=== PATIENT | male | born 1970 | race Caucasian/White ===

== ENCOUNTER 2018-07-27 14:39 | Outpatient (CLI) | payer BC ==
[2018-07-27] MEDS: diphenhydrAMINE 25 MG CAP PO (15:09)
[2018-07-27] MEDS: ACETAMINOPHEN TAB 650MG DOSE (2X325MG) PO (15:10)
[2018-07-27] MEDS: NS 500 ML IV (15:20)
[2018-07-27] MEDS: VEDOLIZUMAB 300 MG in NS 250 ML IV (16:24)
== END 2018-07-27 17:15 | disposition home or self-care (01) ==
LOC: M INFU 14:39
DX: K50.00 Crohn's disease of small intestine without complications (principal); Z88.8 Allergy status to other drugs, medicaments and biological substances
CPT/HCPCS: J3380

== ENCOUNTER 2018-08-10 14:46 | Outpatient (CLI) | payer BC ==
[2018-08-10] MEDS: NS 500 ML IV (15:30)
[2018-08-10] MEDS: diphenhydrAMINE 25 MG CAP PO (16:00)
[2018-08-10] MEDS: VEDOLIZUMAB 300 MG in NS 250 ML IV (16:28)
[2018-08-10] MEDS: ACETAMINOPHEN TAB 650MG DOSE (2X325MG) PO (16:29)
== END 2018-08-10 17:30 | disposition home or self-care (01) ==
LOC: M INFU 14:46
DX: K50.90 Crohn's disease, unspecified, without complications (principal); J45.909 Unspecified asthma, uncomplicated; F41.9 Anxiety disorder, unspecified; F32.9 Major depressive disorder, single episode, unspecified; Z93.3 Colostomy status; Z86.73 Personal history of transient ischemic attack (TIA), and cerebral infarction without residual deficits
CPT/HCPCS: J3380

== ENCOUNTER 2018-09-07 15:09 | Outpatient (CLI) | payer BC ==
[2018-09-07] MEDS: diphenhydrAMINE 25 MG CAP PO (15:15)
[2018-09-07] MEDS: ACETAMINOPHEN TAB 650MG DOSE (2X325MG) PO (15:28)
[2018-09-07] MEDS: NS 500 ML IV (15:29)
[2018-09-07] MEDS: VEDOLIZUMAB 300 MG in NS 250 ML IV (16:15)
== END 2018-09-07 17:10 | disposition home or self-care (01) ==
LOC: M INFU 15:09
DX: K50.019 Crohn's disease of small intestine with unspecified complications (principal); Z79.891 Long term (current) use of opiate analgesic; Z79.899 Other long term (current) drug therapy; Z88.8 Allergy status to other drugs, medicaments and biological substances
CPT/HCPCS: J3380

== ENCOUNTER 2018-12-04 07:44 | Day surgery (SDC) | payer BC ==
[~2018-12-04] VITALS: Ht 180.3 cm; Wt 136.1 kg
[~2018-12-04 07:44] MED LIST: CALC-195 PO; DRIS50003 PO; FERR240T PO; HYDR-3713 PO; LEVO125T4 PO; LOPE2CA PO; LR 1,000 ML IV ONE; MULTTAB PO; OMEG1CAP16 PO; POTA10TA14 PO; TUMERIC PO; TURM500T PO; VITA100072 PO; ZOLO100T PO
[2018-12-04] MEDS ORDERED: BUPIVACAINE HCL 0.25% 30 ML VIAL As Ordered ONE (10:59)
[2018-12-04] MEDS ORDERED: BUPIVACAINE LIPOSOME/PF 1.3% 20ML VIAL (13.3MG/ML)(EXPAREL)(C9290 PER1MG) As Ordered ONE (10:59)
[2018-12-04] MEDS ORDERED: dexameTHASONE 4 MG/ML 1ML VIAL (J1100) As Ordered ONE (11:05)
[2018-12-04] MEDS ORDERED: NEOSTIGMINE 10 MG/10 ML VIAL (J2710) As Ordered ONE (11:05)
[2018-12-04] MEDS ORDERED: ONDANSETRON 4MG/2ML VIAL (J2405) As Ordered ONE (11:05)
[2018-12-04] MEDS ORDERED: PROPOFOL 200 MG/20 ML VIAL As Ordered ONE ×2 (11:05→12:59)
[2018-12-04] MEDS ORDERED: METOCLOPRAMIDE INJ 10MG/2ML VIAL (J2765) As Ordered ONE (11:05)
[2018-12-04] MEDS ORDERED: ROCURONIUM BROMIDE 50 MG/5 ML VIAL As Ordered ONE ×3 (11:05→13:08)
[2018-12-04] MEDS ORDERED: fentaNYL 250 MCG/5 ML INJECTION (J3010) As Ordered ONE (11:05)
[2018-12-04] MEDS ORDERED: GLYCOPYRROLATE INJ 0.2 MG/ML 2 ML VIAL As Ordered ONE (11:05)
[2018-12-04] MEDS ORDERED: MIDAZOLAM INJ 2 MG/2 ML VIAL (J2250) As Ordered ONE (11:05)
[2018-12-04] MEDS ORDERED: LIDOCAINE 2% INJ 100 MG/5 ML SDV (FOR ANES.) As Ordered ONE (11:05)
[2018-12-04] MEDS ORDERED: HYDROmorphone HCL 2 MG/ML 1ML VIAL (J1170) As Ordered ONE (11:06)
[2018-12-04] MEDS ORDERED: ePHEDrine SULFATE 25 MG/5 ML(5MG/ML) SYRINGE As Ordered ONE (12:28)
[2018-12-04] MEDS ORDERED: SUGAMMADEX SODIUM 500 MG/5 ML VIAL (BRIDION) As Ordered ONE (13:19)
[2018-12-04] MEDS ORDERED: BUPIVACAINE HCL 0.25% 10 ML VIAL As Ordered ONE (13:21)
[2018-12-04] MEDS ORDERED: LR 1,000 ML IV SCH (14:15)
[2018-12-04] MEDS ORDERED: ONDANSETRON 4MG/2ML VIAL (J2405) IV PRN (14:15)
[2018-12-04] MEDS ORDERED: MORPHINE 10 MG/ML 1ML VIAL (J2270) IV PRN (14:15)
[2018-12-04] MEDS ORDERED: fentaNYL 100 MCG/2 ML INJECTION (J3010) IV PRN (14:15)
[2018-12-04] MEDS: PERCOCET 5MG/325MG TAB PO PRN ×2 (14:25→14:55)
[2018-12-04] MEDS ORDERED: ALBUTEROL SULFATE 2.5 MG/0.5 ML INH NEB SOLN INH ONE (14:30)
[2018-12-04] MEDS ORDERED: NORCO, ANEXSIA 5/325MG TABLET (HYDROcodone/ACETAMINOPHEN) PO PRN (14:30)
[2018-12-04 15:15] VITALS: BP 138/71
--- NOTE | 2018-12-05 09:35 | RO ---
DATE OF PROCEDURE: 12/04/2018 PREOPERATIVE DIAGNOSIS: Incarcerated ventral incisional hernia. POSTOPERATIVE DIAGNOSIS: Incarcerated ventral incisional hernia. PROCEDURE PERFORMED: Laparoscopic repair of incarcerated ventral incisional hernia with 20 x 15 cm Parietex mesh patch. SURGEON: Dr. Andrews DIRECTOR LEARNING AND DEVELOPMENT: Dr. Hodge, who was needed for management of the laparoscopic camera and the housing assistant port. ANESTHESIA: General. INDICATIONS FOR THE PROCEDURE: Patient is a 48-year-old man with a history of Crohn disease. Approximately 4 years ago, he underwent a small bowel resection with ileostomy for Crohn's related problems. His ileostomy was subsequently closed. He developed an incisional hernia, which has enlarged somewhat over the subsequent years. Inspection reveals a quite large hernia in the right lower quadrant slightly below the level of the umbilicus, which is no longer reducible. He is now for repair. OPERATIVE PROCEDURE: The patient was brought to the operating room and placed supine on the operating table. He was placed under general endotracheal anesthesia. The abdomen was prepped and draped in a sterile fashion. 0.25% Marcaine was infiltrated at the trocar sites as needed. The hernia was readily palpable slightly below the level of the umbilicus in the right lower quadrant. The initial entry into the abdomen was in the left upper quadrant. A small incision was made and a Veress needle was inserted. After a positive hanging drop test, the abdomen was inflated with carbon dioxide gas. A 5 mm port was placed over a 5 mm scope and this was advanced through the abdominal wall without difficulty. The laparoscopic was inserted. The liver appeared normal. Visualized portions of the stomach seemed normal as well. There was some mild dilation of the proximal small bowel, which seemed mostly to be from gas. The patient was tilted to a Trendelenburg position to allow the abdominal contents to fall away from the hernia so it could be better seen. He was noted to have a series of weaknesses along the midline and slightly above the umbilicus. These probably extended 6-8 cm above the umbilicus where there was clearly some stretching of the fascia along the midline, but none of these areas reached a level that I would call another true herniation though the tissues were clearly weakened. There was a single large hernia defect to the right of the midline. This was perhaps 6-7 cm transversely and 4-5 cm superior to inferior. There was a large amount of omentum sticking out into the hernia. A second 5 mm trocar was placed lower down the left side of the abdomen and a third trocar was placed in the left lower quadrant. The patient was rolled slightly to the right. Graspers were inserted. The omentum was reduced from within the hernia, although there were firm adhesions of the omentum into the deepest part of the hernia and these were lysed using the Harmonic scalpel. This allowed better exposure of the defect. The patient was tilted then to the left to allow better examination of the right lower quadrant abdominal wall. There was some preperitoneal fat identified along the inferior and medial aspects of the defect and this fatty tissue was peeled away extending from superior to inferior using the Harmonic scalpel. It was clear that the patient had some degree of diastasis recti though the right rectus muscle was clearly intact. At this point, I elected to deflate the abdomen and make a small incision over the fascial defect to remove the hernia sac and insert the mesh. Therefore, an approximately 6 cm transverse incision was made after deflating the abdomen. A very large hernia sac was identified and this was dissected free from surrounding subcutaneous tissues and excised at the level of the fascia. This was sent for permanent pathology. The edges of the fascial defect were exposed and the fascia appeared of good strength. The medial and lateral ends of the defect were closed with interrupted simple sutures of #1-0 Ethibond. A 15 x 20 cm rectangular, more oval actually, Parietex patch was selected. This was marked to orient the mesh and to place it at a slightly oblique angle covering the fascial defect in the right lower quadrant and then extending up over the midline defect noted above the umbilicus. The midpoint suture of the closure of the fascial defect was used to take a small bite of the mesh and the mesh was then reduced into the abdomen and the fascial defect closure was completed. The abdomen was then reinflated with a maximum pressure of 8 mmHg. The mesh was unfolded and placed against the anterior abdominal wall. SecureStrap tackers were then used to fix the mesh to the abdominal wall. Approximately 85-90 SecureStrap tacks were utilized. The periphery of the mesh was tacked in place as well as multiple tacks along the midline and radiating from this point out to the periphery of the mesh to hold it securely to the anterior abdominal wall. This appeared to give excellent coverage over the areas of weakness along the midline and over the area of the sutured fascial defect. 20 mL of Exparel was mixed with 20 mL of 0.25% Marcaine and this was infiltrated widely into the anterior abdominal wall overlying the mesh. Inspection revealed no evidence of any significant bleeding. In the course of the procedure to affix the mesh, I would note that two additional 5 mm trocars were placed in the right upper quadrant to facilitate tacking of the left side of the mesh. The abdomen was then deflated and the trocars were all removed. The subcutaneous tissues in the hernia site were approximated with #1-0 Vicryl sutures. The skin edges were all approximated with #4-0 or #5-0 Vicryl buried sutures and Steri-Strips. Light dressings were applied. The patient tolerated the procedure well without apparent complication. He was awakened in the operating room, extubated and moved to the recovery room in stable condition. The piece of mesh utilized was a 20 x 15 cm Parietex patch, reference number [id number] lot number [id number]. The patient was taken to the recovery room in stable condition. NINA
== END 2018-12-04 15:50 | disposition home or self-care (01) ==
LOC: M SDC 07:44
PROVIDERS: ATTEND Surgery
DX: K43.0 Incisional hernia with obstruction, without gangrene (principal); E03.9 Hypothyroidism, unspecified; K50.90 Crohn's disease, unspecified, without complications; F41.9 Anxiety disorder, unspecified; F32.9 Major depressive disorder, single episode, unspecified; Z86.73 Personal history of transient ischemic attack (TIA), and cerebral infarction without residual deficits; J45.909 Unspecified asthma, uncomplicated; F17.210 Nicotine dependence, cigarettes, uncomplicated; Z79.899 Other long term (current) drug therapy
CPT/HCPCS: 49655; 88302; C1781; C9290; J1100; J1170; J2250; J2405; J2765; J3010

== ENCOUNTER 2018-12-28 09:15 | Outpatient (CLI) | payer BC ==
[~2018-12-28] VITALS: Ht 180.3 cm; Wt 134.3 kg
[2018-12-28 08:20] VITALS: BP 115/85
[~2018-12-28 09:15] MED LIST changes: -LR 1,000 ML IV ONE
[2018-12-28] MEDS ORDERED: ACETAMINOPHEN TAB 650MG DOSE (2X325MG) PO ONE (09:30)
[2018-12-28] MEDS ORDERED: VEDOLIZUMAB 300 MG in NS 250 ML IV ONE (09:30)
[2018-12-28] MEDS ORDERED: diphenhydrAMINE 25 MG CAP PO ONE (09:30)
[2018-12-28 11:15] VITALS: BP 123/62
== END 2018-12-28 11:15 | disposition home or self-care (01) ==
LOC: M INFU 09:15
PROVIDERS: ATTEND Internal Medicine Gastroenterology
DX: K50.90 Crohn's disease, unspecified, without complications (principal); Z79.891 Long term (current) use of opiate analgesic; Z79.899 Other long term (current) drug therapy
CPT/HCPCS: 96365; J3380

== ENCOUNTER 2019-02-22 09:38 | Outpatient (CLI) | payer BC ==
[~2019-02-22] VITALS: Ht 180.3 cm; Wt 134.3 kg
[~2019-02-22 09:38] MED LIST changes: +VITA100018 PO; -VITA100072 PO
[2019-02-22 09:45] VITALS: BP 132/78
[2019-02-22] MEDS ORDERED: NS 1,000 ML IV ONE (10:00)
[2019-02-22] MEDS ORDERED: ACETAMINOPHEN TAB 650MG DOSE (2X325MG) PO ONE (10:00)
[2019-02-22] MEDS ORDERED: diphenhydrAMINE 25 MG CAP PO ONE (10:00)
[2019-02-22] MEDS ORDERED: VEDOLIZUMAB 300 MG in NS 250 ML IV ONE (11:00)
[2019-02-22 11:44] VITALS: BP 143/78
[2019-02-22 12:08] VITALS: BP 138/72
== END 2019-02-22 12:05 | disposition home or self-care (01) ==
LOC: M INFU 09:38
PROVIDERS: ATTEND Internal Medicine Gastroenterology
DX: K50.90 Crohn's disease, unspecified, without complications (principal)
CPT/HCPCS: 96365; 96367; J3380

== ENCOUNTER 2019-04-19 10:04 | Outpatient (CLI) | payer BC ==
[~2019-04-19] VITALS: Ht 175.3 cm; Wt 134.0 kg
[2019-04-19 10:17] VITALS: BP 133/74
[2019-04-19] MEDS ORDERED: NS 500 ML IV ONE (10:30)
[2019-04-19] MEDS ORDERED: ACETAMINOPHEN TAB 650MG DOSE (2X325MG) PO ONE (11:00)
[2019-04-19] MEDS ORDERED: diphenhydrAMINE 25 MG CAP PO ONE (11:00)
[2019-04-19] MEDS ORDERED: VEDOLIZUMAB 300 MG in NS 250 ML IV ONE (11:30)
[2019-04-19 12:30] VITALS: BP 129/70
== END 2019-04-19 12:30 | disposition home or self-care (01) ==
LOC: M INFU 10:04
PROVIDERS: ATTEND Internal Medicine Gastroenterology
DX: K50.90 Crohn's disease, unspecified, without complications (principal)
CPT/HCPCS: 96365; J3380

== ENCOUNTER 2019-06-14 11:31 | Outpatient (CLI) | payer BC ==
[~2019-06-14] VITALS: Ht 175.3 cm; Wt 134.3 kg
[2019-06-14 11:30] VITALS: BP 138/82
[2019-06-14] MEDS ORDERED: NS 500 ML IV SCH (12:15)
[2019-06-14 12:30] VITALS: BP 128/88
[2019-06-14] MEDS ORDERED: ACETAMINOPHEN TAB 650MG DOSE (2X325MG) PO ONE (12:30)
[2019-06-14] MEDS ORDERED: diphenhydrAMINE 25 MG CAP PO ONE (12:30)
[2019-06-14] MEDS ORDERED: VEDOLIZUMAB 300 MG in NS 250 ML IV ONE (12:30)
[2019-06-14 13:30] VITALS: BP 124/62
== END 2019-06-14 13:35 | disposition home or self-care (01) ==
LOC: M INFU 11:31
PROVIDERS: ATTEND Internal Medicine Gastroenterology
DX: K50.90 Crohn's disease, unspecified, without complications (principal)
CPT/HCPCS: 96365; 96367; J3380

== ENCOUNTER 2019-08-09 08:01 | Outpatient (CLI) | payer BC ==
[~2019-08-09] VITALS: Ht 175.3 cm; Wt 134.2 kg
[2019-08-09 08:05] VITALS: BP 145/78
[2019-08-09] MEDS: NS 500 ML IV ONE ×2 (08:25→09:00)
[2019-08-09] MEDS ORDERED: ACETAMINOPHEN TAB 650MG DOSE (2X325MG) PO ONE (08:30)
[2019-08-09] MEDS ORDERED: diphenhydrAMINE 25 MG CAP PO ONE (08:30)
[2019-08-09] MEDS ORDERED: VEDOLIZUMAB 300 MG in NS 250 ML IV ONE (09:00)
[2019-08-09 10:45] VITALS: BP 144/80
== END 2019-08-09 10:45 | disposition home or self-care (01) ==
LOC: M INFU 08:01
PROVIDERS: ATTEND Internal Medicine Gastroenterology
DX: K50.90 Crohn's disease, unspecified, without complications (principal)
CPT/HCPCS: 96365; 96367; J3380

== ENCOUNTER 2019-10-04 08:05 | Outpatient (CLI) | payer BC ==
[~2019-10-04] VITALS: Ht 175.3 cm; Wt 134.0 kg
[2019-10-04] MEDS ORDERED: ACETAMINOPHEN TAB 650MG DOSE (2X325MG) PO ONE (08:15)
[2019-10-04] MEDS ORDERED: diphenhydrAMINE 25 MG CAP PO ONE (08:15)
[2019-10-04 08:16] VITALS: BP 145/70
[2019-10-04] MEDS ORDERED: VEDOLIZUMAB 300 MG in NS 250 ML IV ONE (08:30)
[2019-10-04] MEDS ORDERED: NS 500 ML IV ONE (08:45)
[2019-10-04 10:20] VITALS: BP 125/70
== END 2019-10-04 10:20 | disposition home or self-care (01) ==
LOC: M INFU 08:05
PROVIDERS: ATTEND Internal Medicine Gastroenterology
DX: K50.90 Crohn's disease, unspecified, without complications (principal); Z88.8 Allergy status to other drugs, medicaments and biological substances
CPT/HCPCS: 96361; 96365; J3380

== ENCOUNTER 2019-11-25 12:25 | Outpatient (CLI) | payer BC ==
[~2019-11-25] VITALS: Ht 175.3 cm; Wt 134.0 kg
[2019-11-25 12:40] VITALS: BP 128/84
[2019-11-25] MEDS ORDERED: NS 500 ML IV SCH (13:30)
[2019-11-25] MEDS ORDERED: VEDOLIZUMAB 300 MG in NS 250 ML IV ONE (14:00)
[2019-11-25] MEDS ORDERED: diphenhydrAMINE 25 MG CAP PO ONE (14:00)
[2019-11-25] MEDS ORDERED: ACETAMINOPHEN TAB 650MG DOSE (2X325MG) PO ONE (14:00)
[2019-11-25 15:00] VITALS: BP 140/71
== END 2019-11-25 15:00 | disposition home or self-care (01) ==
LOC: M INFU 12:25
PROVIDERS: ATTEND Internal Medicine Gastroenterology
DX: K50.90 Crohn's disease, unspecified, without complications (principal); Z88.8 Allergy status to other drugs, medicaments and biological substances
CPT/HCPCS: 96361; 96365; J3380

== ENCOUNTER 2020-01-06 09:22 | Outpatient (CLI) | payer BC ==
[~2020-01-06] VITALS: Ht 175.3 cm; Wt 134.3 kg
[2020-01-06 09:25] VITALS: BP 131/78
[2020-01-06] MEDS ORDERED: ACETAMINOPHEN TAB 650MG DOSE (2X325MG) PO ONE (10:00)
[2020-01-06] MEDS ORDERED: SODIUM CHLORIDE 0.9% 1000ML IV ONE (10:00)
[2020-01-06] MEDS ORDERED: diphenhydrAMINE 25 MG CAP PO ONE (10:00)
[2020-01-06] MEDS ORDERED: ENTY1INJ IV (10:20)
[2020-01-06] MEDS ORDERED: VEDOLIZUMAB 300 MG in NS 250 ML IV ONE (11:00)
[2020-01-06 11:38] VITALS: BP 129/75
[2020-01-06 11:59] VITALS: BP 133/76
== END 2020-01-10 12:00 | disposition home or self-care (01) ==
LOC: M INFU 09:22
PROVIDERS: ATTEND Internal Medicine Gastroenterology
DX: K50.90 Crohn's disease, unspecified, without complications (principal); Z88.8 Allergy status to other drugs, medicaments and biological substances
CPT/HCPCS: 96365; J3380

== ENCOUNTER 2020-01-26 14:20 | Emergency (ER) | payer OTHER, BC ==
[~2020-01-26] VITALS: Ht 180.3 cm; Wt 127.3 kg
[~2020-01-26 14:20] MED LIST changes: +ENTY1INJ IV
[2020-01-26 14:24] VITALS: BP 154/89
[2020-01-26] MEDS ORDERED: NAPR-837 PO (15:05)
[2020-01-26] MEDS ORDERED: CYCL10TA PO (15:05)
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
== END 2020-01-26 15:35 | disposition home or self-care (01) ==
LOC: M ED 14:20 → EDBD 14:20 → M ED 15:35
DX: S01.81XA Laceration without foreign body of other part of head, initial encounter (principal); S20.219A Contusion of unspecified front wall of thorax, initial encounter; V47.5XXA Car driver injured in collision with fixed or stationary object in traffic accident, initial encounter; Y92.411 Interstate highway as the place of occurrence of the external cause; E07.9 Disorder of thyroid, unspecified; I69.351 Hemiplegia and hemiparesis following cerebral infarction affecting right dominant side; K50.90 Crohn's disease, unspecified, without complications; F32.9 Major depressive disorder, single episode, unspecified; Z79.899 Other long term (current) drug therapy

== ENCOUNTER 2020-02-18 09:25 | Outpatient (CLI) | payer BC ==
[~2020-02-18] VITALS: Ht 175.3 cm; Wt 134.3 kg
[~2020-02-18 09:25] MED LIST changes: +CYCL-707 PO; +NAPR-837 PO
[2020-02-18 09:30] VITALS: BP 138/69
[2020-02-18] MEDS ORDERED: NS 500 ML IV ONE (09:45)
[2020-02-18] MEDS ORDERED: ACETAMINOPHEN TAB 650MG DOSE (2X325MG) PO ONE (10:00)
[2020-02-18] MEDS ORDERED: VEDOLIZUMAB 300 MG in NS 250 ML IV ONE (10:00)
[2020-02-18] MEDS ORDERED: diphenhydrAMINE 25MG CAP PO ONE (10:00)
[2020-02-18 11:05] VITALS: BP 134/78
== END 2020-02-18 11:05 | disposition home or self-care (01) ==
LOC: M INFU 09:25
PROVIDERS: ATTEND Internal Medicine Gastroenterology
DX: K50.90 Crohn's disease, unspecified, without complications (principal); Z88.8 Allergy status to other drugs, medicaments and biological substances
CPT/HCPCS: 96365; 96367; J3380

== ENCOUNTER 2020-03-31 09:45 | Outpatient (CLI) | payer BC ==
[~2020-03-31] VITALS: Ht 175.3 cm; Wt 134.2 kg
[2020-03-31 09:50] VITALS: BP 125/77
[2020-03-31] MEDS ORDERED: NS 500 ML IV SCH (10:00)
[2020-03-31] MEDS ORDERED: ACETAMINOPHEN TAB 650MG DOSE (2X325MG) PO ONE (10:00)
[2020-03-31] MEDS ORDERED: diphenhydrAMINE 25MG CAP PO ONE (10:00)
[2020-03-31] MEDS ORDERED: VEDOLIZUMAB 300 MG in NS 250 ML IV ONE (10:00)
[2020-03-31 11:20] VITALS: BP 121/61
== END 2020-03-31 11:20 | disposition home or self-care (01) ==
LOC: M INFU 09:45
PROVIDERS: ATTEND Internal Medicine Gastroenterology
DX: K50.90 Crohn's disease, unspecified, without complications (principal); Z88.8 Allergy status to other drugs, medicaments and biological substances
CPT/HCPCS: 96365; J3380

== ENCOUNTER 2020-05-15 11:51 | Outpatient (CLI) | payer BC ==
[~2020-05-15] VITALS: Ht 180.3 cm; Wt 134.3 kg
[2020-05-15 12:15] VITALS: BP 147/109
[2020-05-15] MEDS ORDERED: ACETAMINOPHEN TAB 650MG DOSE (2X325MG) PO ONE (12:15)
[2020-05-15] MEDS ORDERED: diphenhydrAMINE 25MG CAP PO ONE (12:15)
[2020-05-15] MEDS ORDERED: VEDOLIZUMAB 300 MG in NS 250 ML IV ONE (12:15)
[2020-05-15] MEDS ORDERED: SODIUM CHLORIDE 0.9% 1000ML IV ONE (13:00)
[2020-05-15 14:39] VITALS: BP 162/86
== END 2020-05-15 14:40 | disposition home or self-care (01) ==
LOC: M INFU 11:51
PROVIDERS: ATTEND Internal Medicine Gastroenterology
DX: K50.90 Crohn's disease, unspecified, without complications (principal); Z88.8 Allergy status to other drugs, medicaments and biological substances
CPT/HCPCS: 96365; J3380

== ENCOUNTER 2020-06-26 09:26 | Outpatient (CLI) | payer BC ==
[~2020-06-26] VITALS: Ht 175.3 cm; Wt 134.3 kg
[2020-06-26 09:10] VITALS: BP 131/85
[~2020-06-26 09:26] MED LIST changes: +ACETAMINOPHEN TAB 650MG DOSE (2X325MG) PO ONE; +diphenhydrAMINE 25MG CAP PO ONE
[2020-06-26] MEDS ORDERED: VEDOLIZUMAB 300 MG in NS 250 ML IV ONE (09:30)
[2020-06-26] MEDS ORDERED: NS 500 ML IV ONE (09:30)
[2020-06-26] MEDS ORDERED: diphenhydrAMINE 25MG CAP As Ordered ONE (10:00)
[2020-06-26 12:10] VITALS: BP 127/66
== END 2020-06-26 12:35 | disposition home or self-care (01) ==
LOC: M INFU 09:26
PROVIDERS: ATTEND Internal Medicine Gastroenterology
DX: K50.90 Crohn's disease, unspecified, without complications (principal)
CPT/HCPCS: 96361; 96365; J3380

== ENCOUNTER 2020-08-07 08:50 | Outpatient (CLI) | payer BC ==
[~2020-08-07] VITALS: Ht 175.3 cm; Wt 134.3 kg
[~2020-08-07 08:50] MED LIST changes: -ACETAMINOPHEN TAB 650MG DOSE (2X325MG) PO ONE; -diphenhydrAMINE 25MG CAP PO ONE
[2020-08-07 09:03] VITALS: BP 144/73
[2020-08-07] MEDS: ACETAMINOPHEN TAB 650MG DOSE (2X325MG) PO ONE (09:17)
[2020-08-07] MEDS: diphenhydrAMINE 25MG CAP PO ONE (09:17)
[2020-08-07] MEDS: VEDOLIZUMAB 300 MG in NS 250 ML IV ONE (10:04)
[2020-08-07] MEDS: NS 500 ML IV ONE (10:10)
[2020-08-07 10:50] VITALS: BP 129/68
== END 2020-08-07 10:55 | disposition home or self-care (01) ==
LOC: M INFU 08:50
PROVIDERS: ATTEND Internal Medicine Gastroenterology
DX: K50.90 Crohn's disease, unspecified, without complications (principal)
CPT/HCPCS: 96365; J3380

== ENCOUNTER 2020-09-04 08:27 | Outpatient (CLI) | payer BC ==
[~2020-09-04] VITALS: Ht 175.3 cm; Wt 134.3 kg
[2020-09-04 08:30] VITALS: BP 135/72
[2020-09-04] MEDS ORDERED: VEDOLIZUMAB 300 MG in NS 250 ML IV ONE (08:30)
[2020-09-04] MEDS ORDERED: NS 500 ML IV ONE (08:30)
[2020-09-04] MEDS ORDERED: diphenhydrAMINE 25MG CAP PO ONE (08:30)
[2020-09-04] MEDS ORDERED: ACETAMINOPHEN TAB 650MG DOSE (2X325MG) PO ONE (08:30)
[2020-09-04 10:00] VITALS: BP 122/66
== END 2020-09-04 10:00 | disposition home or self-care (01) ==
LOC: M INFU 08:27
PROVIDERS: ATTEND Internal Medicine Gastroenterology
DX: K50.90 Crohn's disease, unspecified, without complications (principal)
CPT/HCPCS: 96365; J3380

== ENCOUNTER 2020-10-06 10:30 | Outpatient (CLI) | payer BC ==
[~2020-10-06] VITALS: Ht 175.3 cm; Wt 134.0 kg
[~2020-10-06 10:30] MED LIST changes: +ACETAMINOPHEN TAB 650MG DOSE (2X325MG) PO ONE; +NS 500 ML IV ONE; +VEDOLIZUMAB 300 MG in NS 250 ML IV ONE; +diphenhydrAMINE 25MG CAP PO ONE
[2020-10-06 10:35] VITALS: BP 142/82
[2020-10-06 12:00] VITALS: BP 128/78
== END 2020-10-06 12:00 | disposition home or self-care (01) ==
LOC: M INFU 10:30
PROVIDERS: ATTEND Internal Medicine Gastroenterology
DX: K50.90 Crohn's disease, unspecified, without complications (principal); Z88.8 Allergy status to other drugs, medicaments and biological substances
CPT/HCPCS: 96365; J3380

== ENCOUNTER 2020-11-06 10:30 | Outpatient (CLI) | payer BC ==
[~2020-11-06] VITALS: Ht 175.3 cm; Wt 98.9 kg
[~2020-11-06 10:30] MED LIST changes: -NS 500 ML IV ONE
[2020-11-06 11:00] VITALS: BP 145/78
[2020-11-06] MEDS ORDERED: NS 500 ML IV ONE (11:00)
[2020-11-06 12:55] VITALS: BP 130/60
== END 2020-11-06 12:55 | disposition home or self-care (01) ==
LOC: M INFU 10:30
PROVIDERS: ATTEND Internal Medicine Gastroenterology
DX: K50.90 Crohn's disease, unspecified, without complications (principal); Z88.8 Allergy status to other drugs, medicaments and biological substances
CPT/HCPCS: 96361; 96365; J3380

== ENCOUNTER 2020-12-04 13:52 | Outpatient (CLI) | payer BC ==
[~2020-12-04] VITALS: Ht 185.4 cm; Wt 134.6 kg
[~2020-12-04 13:52] MED LIST changes: -ACETAMINOPHEN TAB 650MG DOSE (2X325MG) PO ONE; -VEDOLIZUMAB 300 MG in NS 250 ML IV ONE; -diphenhydrAMINE 25MG CAP PO ONE
[2020-12-04 14:00] VITALS: BP 145/70
[2020-12-04] MEDS ORDERED: NS 500 ML IV ONE (14:00)
[2020-12-04] MEDS ORDERED: VEDOLIZUMAB 300 MG in NS 250 ML IV ONE (14:00)
[2020-12-04] MEDS ORDERED: ACETAMINOPHEN TAB 650MG DOSE (2X325MG) PO ONE (14:00)
[2020-12-04] MEDS ORDERED: diphenhydrAMINE 25MG CAP PO ONE (14:00)
[2020-12-04 15:10] VITALS: BP 131/78
[2020-12-04 15:45] VITALS: BP 128/70
== END 2020-12-04 15:00 | disposition home or self-care (01) ==
LOC: M INFU 13:52
PROVIDERS: ATTEND Internal Medicine Gastroenterology
DX: K50.90 Crohn's disease, unspecified, without complications (principal); Z88.8 Allergy status to other drugs, medicaments and biological substances
CPT/HCPCS: 96361; 96365; J3380

== ENCOUNTER 2021-01-01 08:57 | Outpatient (CLI) | payer BC ==
[~2021-01-01] VITALS: Ht 185.4 cm; Wt 134.3 kg
[~2021-01-01 08:57] MED LIST changes: +ACETAMINOPHEN TAB 650MG DOSE (2X325MG) PO ONE; +NS 500 ML IV ONE; +diphenhydrAMINE 25MG CAP PO ONE
[2021-01-01] MEDS ORDERED: NS 500 ML IV ONE (09:00)
[2021-01-01] MEDS ORDERED: VEDOLIZUMAB 300 MG in NS 250 ML IV ONE (09:00)
[2021-01-01 09:28] VITALS: BP 139/65
[2021-01-01 10:30] VITALS: BP 138/71
== END 2021-01-01 10:30 | disposition home or self-care (01) ==
LOC: M INFU 08:57
PROVIDERS: ATTEND Internal Medicine Gastroenterology
DX: K50.90 Crohn's disease, unspecified, without complications (principal); Z88.8 Allergy status to other drugs, medicaments and biological substances
CPT/HCPCS: 96361; 96365; J3380

== ENCOUNTER 2021-01-29 08:53 | Outpatient (CLI) | payer BC ==
[~2021-01-29] VITALS: Ht 185.4 cm; Wt 134.4 kg
[~2021-01-29 08:53] MED LIST changes: -ACETAMINOPHEN TAB 650MG DOSE (2X325MG) PO ONE; -diphenhydrAMINE 25MG CAP PO ONE
[2021-01-29 09:00] VITALS: BP 127/60
[2021-01-29] MEDS ORDERED: VEDOLIZUMAB 300 MG in NS 250 ML IV ONE (09:00)
[2021-01-29] MEDS ORDERED: ACETAMINOPHEN TAB 650MG DOSE (2X325MG) PO ONE (09:00)
[2021-01-29] MEDS ORDERED: diphenhydrAMINE 25MG CAP PO ONE (09:00)
[2021-01-29 10:37] VITALS: BP 133/64
== END 2021-01-29 10:40 | disposition home or self-care (01) ==
LOC: M INFU 08:53
PROVIDERS: ATTEND Internal Medicine Gastroenterology
DX: K50.90 Crohn's disease, unspecified, without complications (principal); Z88.8 Allergy status to other drugs, medicaments and biological substances
CPT/HCPCS: 96361; 96365; J3380

== ENCOUNTER 2021-02-13 12:13 | Inpatient (IN) | payer BC ==
[~2021-02-13] VITALS: Ht 180.3 cm; Wt 143.7 kg
[~2021-02-13 12:13] MED LIST changes: -NS 500 ML IV ONE
[2021-02-13] MEDS ORDERED: MESA800T8 PO (12:24)
[2021-02-13 12:53] LABS: BASO % 0.6 % (0.0-1.0); EOS # 0.1 10^3/uL (0.0-0.5); EOS % 1.6 % (0.0-3.0); HEMATOCRIT 37.2 % (42.0-52.0); HEMOGLOBIN 11.7 g/dl (13.5-17.5); LYMPH # 0.9 10^3/uL (1.5-5.0); LYMPH % 18.6 % (24.0-44.0); MEAN CORPUSCULAR HEMOGLOBIN 30.4 pg (27.0-33.0); MEAN CORPUSCULAR HGB CONC 31.5 g/dl (32.0-36.5); MEAN CORPUSCULAR VOLUME 96.6 fl (80.0-96.0); MONO # 0.5 10^3/uL (0.0-0.8); MONO % 9.3 % (2.0-8.0); NEUTROPHILS # 3.5 10^3/uL (1.5-8.5); NEUTROPHILS % 69.5 % (36.0-66.0); PLATELET COUNT, AUTOMATED 242 10^3/uL (150-450); RED BLOOD COUNT 3.85 10^6/uL (4.30-6.10); WHITE BLOOD COUNT 5.1 10^3/uL (4.0-10.0)
[2021-02-13 13:16] LABS: BLOOD UREA NITROGEN 9 MG/DL (7-18); CARBON DIOXIDE LEVEL 26 MEQ/L (21-32); CHLORIDE LEVEL 107 MEQ/L (98-107); CREATININE FOR GFR 0.85 MG/DL (0.70-1.30); GLOMERULAR FILTRATION RATE > 60.0 (>56); GLUCOSE, FASTING 119 MG/DL (70-100); SODIUM LEVEL 139 MEQ/L (136-145)
[2021-02-13] MEDS ORDERED: ISOVUE-370 76% 100ML VIAL As Ordered ONE (13:20)
[2021-02-13] MEDS ORDERED: NS 1,000 ML IV ONE (13:20)
[2021-02-13 13:26] LABS: INR 1.03; PROTHROMBIN TIME 13.7 SECONDS (12.5-14.3)
[2021-02-13 13:27] LABS: PARTIAL THROMBOPLASTIN TIME 28.5 SECONDS (24.2-38.5)
--- NOTE | 2021-02-13 13:30 | REP ---
INDICATION: abdominal pain. COMPARISON: 01/26/2020. TECHNIQUE: SINGLE PORTABLE AP VIEW OF THE CHEST WAS PERFORMED. FINDINGS: THERE IS NO ACUTE INFILTRATE OR PULMONARY EDEMA. LUNGS ARE CLEAR. HEART IS NOT SIGNIFICANTLY ENLARGED. MEDIASTINAL SILHOUETTE IS UNREMARKABLE. THE VISUALIZED OSSEOUS STRUCTURES ARE INTACT. IMPRESSION: NO ACUTE PULMONARY DISEASE. <Electronically signed by Seven Velasco > 02/13/21 [id number]
[2021-02-13 13:38] LABS: ALBUMIN 3.2 GM/DL (3.2-5.2); ALT/SGPT 19 U/L (12-78); BILIRUBIN,DIRECT < 0.1 MG/DL (0.0-0.2); BILIRUBIN,TOTAL 0.3 MG/DL (0.2-1.0); TOTAL PROTEIN 6.5 GM/DL (6.4-8.2)
[2021-02-13] MEDS: MORPHINE 2 MG/ML 1ML VIAL (J2270) IV PRN ×2 (13:50→14:47)
[2021-02-13] MEDS ORDERED: METAL LOCK LOOP XX ONE (14:50)
--- NOTE | 2021-02-13 15:12 | REP ---
INDICATION: abdominal pain/ crohns, lower gi bleed. COMPARISON: None TECHNIQUE: 100 cc Isovue 370 without oral bowel preparatory contrast administration FINDINGS: The lung bases are clear. There are multiple fluid and gas-filled dilated loops of small bowel within the abdomen and upper pelvis. A few of the affected small bowel loops have thickened enhancing cordon and seen in conjunction with mild perienteric fatty infiltration. There is no evidence of intestinal obstruction. Two bowel anastomotic sites are identified 1 in the right lower quadrant which is ileo colic and another in the midline slightly to the left which is small bowel to small bowel. There is no evidence of free fluid or free air. The liver, spleen, gallbladder, pancreas, adrenal glands, and kidneys are within normal limits with the exception of possible tiny bilateral nonobstructing nephroliths difficult to evaluate since there are no noncontrast enhanced images to review. The abdominal aorta and para-aortic regions are within normal limits. The imaged osseous structures are within normal limits for the patient's age. IMPRESSION: 1. There is evidence of inflammatory bowel disease consistent with the patient's history of Crohn's disease. 2. There is no evidence of a complete bowel obstruction. 3. Possible tiny bilateral nonobstructing nephroliths. 4. Other findings as described above. <Electronically signed by Jono Barney > 02/13/21 [id number]
[2021-02-13] MEDS ORDERED: PANTOPRAZOLE 40MG VIAL (C9113 PER 1) IV ONE (15:45)
[2021-02-13] MEDS: HYDROMORPHONE HCL 0.5 MG/ 0.5 ML SYRINGE (J1170 PER 1) IV PRN ×2 (15:56→17:42)
[2021-02-13] MEDS ORDERED: VITMTA PO (16:05)
[2021-02-13] MEDS ORDERED: ACET1TAB55 PO (16:05)
[2021-02-13] MEDS ORDERED: IRON65TA2 PO (16:05)
[2021-02-13] MEDS ORDERED: HYDR-4514 PO (16:05)
[2021-02-13] MEDS ORDERED: ZOLO50TA PO (16:05)
[2021-02-13] MEDS ORDERED: ALBU8.5H INH (16:05)
[2021-02-13] MEDS ORDERED: VITA500C24 PO (16:05)
[2021-02-13] MEDS ORDERED: ALBUTEROL 90 MCG/ACT 8GM HFA INHALER INH PRN (16:25)
--- NOTE | 2021-02-13 16:57 | HPEPDOC ---
General Date of Admission 02/13/21 Date of Service: Feb 13, 2021 Chief Complaint The patient is a 51-year-old male admitted with a reason for visit of Possible Gi Bleed. Source: Patient Exam Limitations: No limitations Severity: Moderate History of Present Illness Patient 51 years old male with past history of Crohn diseases, previous bowel resection, depression, anxiety, hypothyroidism presented to the hospital with abdominal pain and blood in the stool. Patient stated that for past one week he has been having a few episodes of stool with red blood per rectum. The last 1 was in the morning he noticed black stool and red blood in the stool. Patient stated that he currently on Entyvia injection monthly, the last one was in the end of the January. Also patient stated that he has a crampy abdominal pain with low-grade fever associated with nausea. He reported that similar symptoms he had around 6 years ago when he was diagnosed with Crohn exacerbation. Last week patient had vaccination against COVID with [employer]. In ER patient was found to have no leukocytosis, hemoglobin 11.7. CT abdomen and pelvis showed There is evidence of inflammatory bowel disease consistent with the patient's history of Crohn's disease. There is no evidence of a complete bowel obstruction. Home Medications Scheduled Ascorbic Acid (Vitamin C) 500 Mg Capsule, 500 MG PO DAILY, (Reported) Cyanocobalamin (Vitamin B-12) (Vitamin B-12) 1,000 Mcg Tab, 1,000 MCG PO DAILY, (Reported) Ferrous Sulfate (Iron) 325 Mg Tablet, 325 MG PO DAILY, (Reported) Levothyroxine Sodium (Levothyroxine Sodium) 125 Mcg Tab, 125 MCG PO DAILY, (Reported) Multivitamins (Thera M Plus Tablet) 1 Each Tablet, 1 TAB PO DAILY, (Reported) Sertraline Hcl (Zoloft) 100 Mg Tab, 100 MG PO QPM, (Reported) 150MG TOTAL DAILY Sertraline Hcl (Zoloft) 50 Mg Tablet, 50 MG PO QPM, (Reported) 150MG TOTAL DAILY Vedolizumab (Entyvio) 300 Mg Vial, 300 MG IV Q4WKS, (Reported) DUE AT END OF FEBRUARY Scheduled PRN Acetaminophen (Acetaminophen) 325 Mg Tablet, 650 MG PO QID PRN for PAIN, (Reported) Albuterol Sulfate (Albuterol Sulfate Hfa) 8.5 Gm Hfa.aer.ad, 2 PUFFS INH Q4H PRN for SHORTNESS OF BREATH, (Reported) Hydrocodone/Acetaminophen (Hydrocodone-Acetamin 7.5-325) 1 Each Tablet, 1 TAB PO Q4H PRN for PAIN, (Reported) Mesalamine (Mesalamine) 800 Mg Tablet.dr, 1,600 MG PO TID PRN for ULCERTIVE COLITIS, (Reported) Allergies Coded Allergies: adalimumab (Verified Adverse Reaction, Intermediate, INTOLERANCE, 02/22/19) infliximab (Verified Adverse Reaction, Intermediate, INTOLERANCE, 02/22/19) prochlorperazine (Verified Adverse Reaction, Intermediate, ANXIOUS, 02/22/19) Past Medical History Medical History Crohn diseases, previous bowel resection, depression, anxiety, hypothyroidism Surgical History Bowel resection around 6 years ago Family History I personally reviewed family history and found not pertinent Social History * Smoker: current smoker Alcohol: occationally Drugs: denies A-FIB/CHADSVASC A-FIB History Current/History of A-Fib/PAF?: No Current PO Anticoag Therapy: No Review of Systems Constitutional: Reports: Fever, Malaise Eyes: Denies: Pain ENT: Denies: Head Aches, Ear Pain Skin: Denies: Rash, Lesions Pulmonary: Denies: Dyspnea, Cough Cardiovascular: Denies: Chest Pain Gastrointestinal: Reports: Nausea, Abdominal Pain Genitourinary: Denies: Dysuria, Frequency Hematologic: Denies: Bruising Endocrine: Denies: Polydipsia Musculoskeletal: Denies: Neck Pain, Back Pain Neurological: Denies: Weakness Psych: Reports: Mood Normal Physical Examination General Exam: Positive: Alert, Cooperative Eye Exam: Positive: PERRLA ENT Exam: Positive: Atraumatic Neck Exam: Positive: Supple; Negative: JVD Chest Exam: Positive: Clear to auscultation Heart Exam: Positive: Rate Normal Telemetry: Positive: No significant arrhythmia Abdomen Exam: Positive: Tenderness (diffuse tenderness, no rebound) Extremity Exam: Negative: Clubbing, Cyanosis Skin Exam: Positive: Nl turgor and temperature Neuro Exam: Positive: Normal Gait, Strength at 5/5 X4 ext Psych Exam: Positive: Mental status NL Vital Signs Vital Signs Date Time Temp Pulse Resp B/P (MAP) Pulse Ox O2 Delivery O2 Flow Rate FiO2 02/13/21 16:04 18 99 Room Air 02/13/21 15:00 73 129/66 (87) 4/13/21 12:14 97.9 Laboratory Data Labs 24H Laboratory Tests 2 02/13/21 12:23: Immature Granulocyte % (Auto) 0.4, Neutrophils (%) (Auto) 69.5H, Lymphocytes (%) (Auto) 18.6L, Monocytes (%) (Auto) 9.3H, Eosinophils (%) (Auto) 1.6, Basophils (%) (Auto) 0.6, Neutrophils # (Auto) 3.5, Lymphocytes # (Auto) 0.9L, Monocytes # (Auto) 0.5, Eosinophils # (Auto) 0.1, Basophils # (Auto) 0.0, Nucleated Red Blood Cells % (auto) 0.0, Anion Gap 6L, Glomerular Filtration Rate > 60.0, Calcium Level 9.0, Total Bilirubin 0.3, Direct Bilirubin < 0.1, Aspartate Amino Transf (AST/SGOT) 12, Alanine Aminotransferase (ALT/SGPT) 19, Alkaline Phosphatase 69, Total Protein 6.5, Albumin 3.2, Albumin/Globulin Ratio 1.0 02/13/21 12:28: Prothrombin Time 13.7, Prothromb Time International Ratio 1.03, Activated Partial Thromboplast Time 28.5 CBC/BMP Laboratory Tests 02/13/21 12:23 Microbiology Microbiology 02/13/21 Respiratory Virus Panel (PCR) ([facility]), Received Pending Assessment/Plan Patient 51 years old male with past history of Crohn diseases, previous bowel resection, depression, anxiety, hypothyroidism presented to the hospital with abdominal pain and blood in the stool. Patient stated that for past one week he has been having a few episodes of stool with red blood per rectum. The last 1 was in the morning he noticed black stool and red blood in the stool. Patient stated that he currently on Entyvia injection monthly, the last one was in the end of the January. Also patient stated that he has a crampy abdominal pain with low-grade fever associated with nausea. He reported that similar symptoms he had around 6 years ago when he was diagnosed with Crohn exacerbation. Last week patient had vaccination against COVID with [employer]. In ER patient was found to have no leukocytosis, hemoglobin 11.7. CT abdomen and pelvis showed There is evidence of inflammatory bowel disease consistent with the patient's history of Crohn's disease. There is no evidence of a complete bowel obstruction. Problems (1) Crohn's disease Status: Acute Problem Text: Most likely patient developed Crohn exacerbation I will start IV Solu-Medrol Clear liquid diet for now Pain management GI panel, (2) Hypothyroidism Status: Chronic Problem Text: Continue levothyroxine (3) Lower GI bleed Status: Acute Problem Text: Most likely due to chronic exacerbation Patient will need colonoscopy and EGD after inflammation subsided (4) Depression Status: Chronic Problem Text: Continue home meds Plan / VTE VTE Prophylaxis Ordered?: Yes DANTE DAVIS DO Feb 13, 2021 16:57
[2021-02-13] MEDS ORDERED: ACETAMINOPHEN TAB 650MG DOSE (2X325MG) PO PRN (17:00)
[2021-02-13] MEDS ORDERED: ANEXSIA, NORCO 7.5MG/325MG TABLET(HYDROCODONE/APAP) PO PRN (17:00)
[2021-02-13] MEDS: methylPREDNISolone 125MG 2ML VIAL IV SCH (17:42)
[2021-02-13] MEDS ORDERED: NICOTINE 21MG/24HR 1 EA TRANSDERMAL TD ONE (18:30)
[2021-02-13] MEDS: NS 1,000 ML IV SCH (19:17)
[2021-02-13 21:00] VITALS: BP 137/71
[2021-02-13] MEDS: MORPHINE 4 MG/ML 1ML VIAL/SYRINGE (J2270) IV PRN (21:44)
[2021-02-13] MEDS: MESALAMINE 400 MG CAPSULE DELAYED RELEASE (DELZICOL) PO SCH (22:19)
[2021-02-13] MEDS: SERTRALINE 100 MG TAB PO SCH (22:24)
[2021-02-13] MEDS: SERTRALINE HCL 50 MG TAB PO SCH (22:55)
[2021-02-14] MEDS: MORPHINE 4 MG/ML 1ML VIAL/SYRINGE (J2270) IV PRN ×4 (04:08→20:13)
[2021-02-14] MEDS: NS 1,000 ML IV SCH ×2 (05:46→15:28)
[2021-02-14] MEDS: LEVOTHYROXINE 125MCG TABLET (0.125MG) PO SCH (05:46)
[2021-02-14 06:00] VITALS: BP 128/68
[2021-02-14 07:01] LABS: HEMOGLOBIN 10.3 g/dl (13.5-17.5); MEAN CORPUSCULAR HEMOGLOBIN 30.4 pg (27.0-33.0); MEAN CORPUSCULAR HGB CONC 31.2 g/dl (32.0-36.5); MEAN CORPUSCULAR VOLUME 97.3 fl (80.0-96.0); PLATELET COUNT, AUTOMATED 231 10^3/uL (150-450); RED BLOOD COUNT 3.39 10^6/uL (4.30-6.10); WHITE BLOOD COUNT 7.6 10^3/uL (4.0-10.0)
[2021-02-14 07:26] LABS: ALBUMIN 2.9 GM/DL (3.2-5.2); ALT/SGPT 19 U/L (12-78); BILIRUBIN,TOTAL 0.2 MG/DL (0.2-1.0); BLOOD UREA NITROGEN 8 MG/DL (7-18); CALCIUM LEVEL 7.9 MG/DL (8.5-10.1); CARBON DIOXIDE LEVEL 27 MEQ/L (21-32); CHLORIDE LEVEL 105 MEQ/L (98-107); GLOMERULAR FILTRATION RATE > 60.0 (>56); GLUCOSE, FASTING 154 MG/DL (70-100); POTASSIUM SERUM 4.2 MEQ/L (3.5-5.1); SODIUM LEVEL 138 MEQ/L (136-145)
[2021-02-14] MEDS: CYANOCOBALAMIN 500 MCG TAB PO SCH (09:27)
[2021-02-14] MEDS: MESALAMINE 400 MG CAPSULE DELAYED RELEASE (DELZICOL) PO SCH ×3 (09:27→20:12)
[2021-02-14] MEDS: NICOTINE 21MG/24HR 1 EA TRANSDERMAL TD SCH (09:28)
[2021-02-14] MEDS: FERROUS SULFATE 325MG TAB PO SCH (09:28)
[2021-02-14] MEDS: ASCORBIC ACID 500 MG TAB PO SCH (09:28)
[2021-02-14] MEDS: MULTIVITAMINS/MINERALS THERAP 1 TAB PO SCH (09:29)
[2021-02-14] MEDS: ENOXAPARIN 40MG/0.4ML SYRINGE (J1650 PER 10MG) SC SCH (09:36)
[2021-02-14] MEDS: methylPREDNISolone 125MG 2ML VIAL IV SCH (09:37)
--- NOTE | 2021-02-14 12:40 | IPNPDOC ---
Text Note Date of Service The patient was seen on 02/14/21. NOTE Subjective: Patient stated that he feels better today is abdominal pain. He has 1 large bowel movement overnight without blood. Objective: GENERAL APPEARANCE: Morbidly obese HEENT: no scleral icterus, no JVD, EOMI CARDIOVASCULAR: S1S2 LUNGS: CTA ABDOMEN: Obese abdomen, mildly diffuse tender, no rebound MUSCULOSKELETAL: no cyanosis, no swelling INTEGUMENT: no generalized pallor NEUROLOGICAL: cranial nerve function from 2-12 intact intact, follows commands, speech not dysarthric Assessment/Plan Patient 51 years old male with past history of Crohn diseases, previous bowel resection, depression, anxiety, hypothyroidism presented to the hospital with abdominal pain and blood in the stool. Patient stated that for past one week he has been having a few episodes of stool with red blood per rectum. The last 1 was in the morning he noticed black stool and red blood in the stool. Patient stated that he currently on Entyvia injection monthly, the last one was in the end of the January. Also patient stated that he has a crampy abdominal pain with low-grade fever associated with nausea. He reported that similar symptoms he had around 6 years ago when he was diagnosed with Crohn exacerbation. Last week patient had vaccination against COVID with [employer]. In ER patient was found to have no leukocytosis, hemoglobin 11.7. CT abdomen and pelvis showed There is evidence of inflammatory bowel disease consistent with the patient's history of Crohn's disease. There is no evidence of a complete bowel obstruction. Problems (1) Crohn's disease Most likely patient developed Crohn exacerbation Will continue IV Solu-Medrol. I upgraded his diet to full liquid Pain management Await GI panel (2) Hypothyroidism Continue levothyroxine (3) Lower GI bleed Most likely due to chronic exacerbation Patient will need colonoscopy and EGD after inflammation subsided (4) Depression Continue home meds Morbid obesity BMI 44.2 Complicated care VS,Fishbone, I+O VS, Fishbone, I+O Laboratory Tests 02/13/21 19:39 02/14/21 02:18 02/14/21 06:23 02/14/21 09:35 Vital Signs Date Time Temp Pulse Resp B/P (MAP) Pulse Ox O2 Delivery O2 Flow Rate FiO2 02/14/21 11:02 18 Room Air 02/14/21 06:00 97.5 77 128/68 (88) 97 I&O- Last 24 Hours up to 6 AM 02/14/21 06:00 Intake Total 1770 ml Output Total 400 ml Balance 1370 ml DANTE DAVIS DO Feb 14, 2021 12:40
[2021-02-14] MEDS: SIMETHICONE 80MG CHEW TAB PO SCH ×3 (13:39→20:11)
[2021-02-14] MEDS: SERTRALINE HCL 50 MG TAB PO SCH (20:11)
[2021-02-14] MEDS: SERTRALINE 100 MG TAB PO SCH (20:12)
[2021-02-14 22:00] VITALS: BP 132/64
[2021-02-15] MEDS: NS 1,000 ML IV SCH (00:25)
[2021-02-15] MEDS: MORPHINE 4 MG/ML 1ML VIAL/SYRINGE (J2270) IV PRN ×2 (00:26→05:31)
[2021-02-15] MEDS: LEVOTHYROXINE 125MCG TABLET (0.125MG) PO SCH (05:30)
[2021-02-15 06:00] VITALS: BP 151/78
[2021-02-15 08:58] VITALS: BP 137/76
[2021-02-15] MEDS: ASCORBIC ACID 500 MG TAB PO SCH (09:00)
[2021-02-15] MEDS: MULTIVITAMINS/MINERALS THERAP 1 TAB PO SCH (09:00)
[2021-02-15] MEDS: SIMETHICONE 80MG CHEW TAB PO SCH (09:00)
[2021-02-15] MEDS: ENOXAPARIN 40MG/0.4ML SYRINGE (J1650 PER 10MG) SC SCH (09:00)
[2021-02-15] MEDS: MESALAMINE 400 MG CAPSULE DELAYED RELEASE (DELZICOL) PO SCH (09:00)
[2021-02-15] MEDS: methylPREDNISolone 125MG 2ML VIAL IV SCH (09:00)
[2021-02-15] MEDS: CYANOCOBALAMIN 500 MCG TAB PO SCH (09:00)
[2021-02-15] MEDS: NICOTINE 21MG/24HR 1 EA TRANSDERMAL TD SCH (09:00)
[2021-02-15] MEDS: FERROUS SULFATE 325MG TAB PO SCH (09:00)
[2021-02-15] MEDS ORDERED: PRED10TA2 PO (09:30)
[2021-02-15] MEDS ORDERED: MI-A80CH PO (09:30)
--- NOTE | 2021-02-15 18:53 | DS.PDOC ---
Discharge Summary General Date of Admission Feb 13, 2021 at 16:33 Date of Discharge 02/15/21 Discharge Summary PROCEDURES PERFORMED DURING STAY: [None]. ADMITTING DIAGNOSES: Crohn's disease Hypothyroidism Lower GI bleed Depression Morbid obesity DISCHARGE DIAGNOSES: Crohn's disease Hypothyroidism Lower GI bleed Depression Morbid obesity COMPLICATIONS/CHIEF COMPLAINT: Crohn's Diesease. HISTORY OF PRESENT ILLNESS: Patient 51 years old male with past history of Crohn diseases, previous bowel resection, depression, anxiety, hypothyroidism presented to the hospital with abdominal pain and blood in the stool. Patient stated that for past one week he has been having a few episodes of stool with red blood per rectum. The last 1 was in the morning he noticed black stool and red blood in the stool. Patient stated that he currently on Entyvia injection monthly, the last one was in the end of the January. Also patient stated that he has a crampy abdominal pain with low-grade fever associated with nausea. He reported that similar symptoms he had around 6 years ago when he was diagnosed with Crohn exacerbation. Last week patient had vaccination against COVID with [employer]. In ER patient was found to have no leukocytosis, hemoglobin 11.7. CT abdomen and pelvis showed There is evidence of inflammatory bowel disease consistent with the patient's history of Crohn's disease. There is no evidence of a complete bowel obstruction. HOSPITAL COURSE: During hospital stay the following issues addressed (1) Crohn's disease Most likely patient developed Crohn exacerbation Pt received IV Solu-Medrol with positive dynamics I upgraded his diet to full liquid Pain management Patient will have a GI appointment today (2) Hypothyroidism Continue levothyroxine (3) Lower GI bleed Most likely due to chronic exacerbation Patient will need colonoscopy and EGD after inflammation subsided (4) Depression Continue home meds Morbid obesity BMI 44.2 Complicated care DISCHARGE MEDICATIONS: Please see below. ALLERGIES: Please see below. PHYSICAL EXAMINATION ON DISCHARGE: VITAL SIGNS: Please see below. GENERAL APPEARANCE: Morbidly obese HEENT: no scleral icterus, no JVD, EOMI CARDIOVASCULAR: S1S2 LUNGS: CTA ABDOMEN: Obese abdomen, mildly diffuse tender, no rebound MUSCULOSKELETAL: no cyanosis, no swelling INTEGUMENT: no generalized pallor NEUROLOGICAL: cranial nerve function from 2-12 intact intact, follows commands, speech not dysarthric LABORATORY DATA: Please see below. PROGNOSIS: fair ACTIVITY: [As tolerated]. DIET: Soft mechanical DISPOSITION: 01 Home, Self-Care. DISCHARGE INSTRUCTIONS: taper steroids ITEMS TO FOLLOWUP ON ON OUTPATIENT: Follow-up with GI team and PCP DISCHARGE CONDITION: [Stable]. TIME SPENT ON DISCHARGE: 40minutes. Vital Signs/I&Os Vital Signs Date Time Temp Pulse Resp B/P (MAP) Pulse Ox O2 Delivery O2 Flow Rate FiO2 02/15/21 08:58 98.2 67 16 137/76 (96) 95 Room Air I&O- Last 24 Hours up to 6 AM 02/15/21 06:00 Intake Total 5390 ml Output Total 3920 ml Balance 1470 ml Microbiology Microbiology 02/13/21 Blood Culture - Preliminary, Resulted No Growth after 48 hours. All Specime... 02/13/21 Blood Culture - Preliminary, Resulted No Growth after 48 hours. All Specime... 02/13/21 Respiratory Virus Panel (PCR) ([facility]) - Final, Complete Discharge Medications Scheduled Ascorbic Acid (Vitamin C) 500 Mg Capsule, 500 MG PO DAILY, (Reported) Cyanocobalamin (Vitamin B-12) (Vitamin B-12) 1,000 Mcg Tab, 1,000 MCG PO DAILY, (Reported) Ferrous Sulfate (Iron) 325 Mg Tablet, 325 MG PO DAILY, (Reported) Levothyroxine Sodium (Levothyroxine Sodium) 125 Mcg Tab, 125 MCG PO DAILY, (Reported) Multivitamins (Thera M Plus Tablet) 1 Each Tablet, 1 TAB PO DAILY, (Reported) Prednisone (Prednisone) 10 Mg Tablet, 10 MG PO TAPER Take 4 tabs daily x 7 days, then 3 tabs daily x 7 days, then 2 tabs daily x 7 days, then 1 tab daily x 7 days and stop Sertraline Hcl (Zoloft) 100 Mg Tab, 100 MG PO QPM, (Reported) 150MG TOTAL DAILY Sertraline Hcl (Zoloft) 50 Mg Tablet, 50 MG PO QPM, (Reported) 150MG TOTAL DAILY Vedolizumab (Entyvio) 300 Mg Vial, 300 MG IV Q4WKS, (Reported) DUE AT END OF FEBRUARY Scheduled PRN Acetaminophen (Acetaminophen) 325 Mg Tablet, 650 MG PO QID PRN for PAIN, (Reported) Albuterol Sulfate (Albuterol Sulfate Hfa) 8.5 Gm Hfa.aer.ad, 2 PUFFS INH Q4H PRN for SHORTNESS OF BREATH, (Reported) Hydrocodone/Acetaminophen (Hydrocodone-Acetamin 7.5-325) 1 Each Tablet, 1 TAB PO Q4H PRN for PAIN, (Reported) Mesalamine (Mesalamine) 800 Mg Tablet.dr, 1,600 MG PO TID PRN for ULCERTIVE COLITIS, (Reported) Simethicone (Mi-Acid) 80 Mg Tab.chew, 80 MG PO QID PRN for BLOATING Allergies Coded Allergies: adalimumab (Verified Adverse Reaction, Intermediate, INTOLERANCE, 02/22/19) infliximab (Verified Adverse Reaction, Intermediate, INTOLERANCE, 02/22/19) prochlorperazine (Verified Adverse Reaction, Intermediate, ANXIOUS, 02/22/19) DANTE DAVIS DO Feb 15, 2021 18:52
== END 2021-02-15 10:57 | disposition home or self-care (01) | DRG 245 ==
LOC: M ED 12:13 → M ED INP 16:33 → ENRESERV 19:14 → M MSPAV 21:00
PROVIDERS: ADMIT Internal Medicine; ATTEND Internal Medicine
DX: K50.911 Crohn's disease, unspecified, with rectal bleeding (principal); Z68.41 Body mass index [BMI] 40.0-44.9, adult; E66.01 Morbid (severe) obesity due to excess calories; F17.210 Nicotine dependence, cigarettes, uncomplicated; F32.9 Major depressive disorder, single episode, unspecified; E03.9 Hypothyroidism, unspecified; Z79.899 Other long term (current) drug therapy; Z88.8 Allergy status to other drugs, medicaments and biological substances; Z90.49 Acquired absence of other specified parts of digestive tract

== ENCOUNTER 2021-02-26 10:31 | Outpatient (CLI) | payer BC ==
[~2021-02-26] VITALS: Ht 185.4 cm; Wt 134.3 kg
[~2021-02-26 10:31] MED LIST changes: +ACET1TAB55 PO; +ACETAMINOPHEN TAB 650MG DOSE (2X325MG) PO ONE; +ALBU8.5H INH; +HYDR-4514 PO; +IRON65TA2 PO; +MESA800T8 PO; +MI-A80CH PO; +PRED10TA2 PO; +VEDOLIZUMAB 300 MG in NS 250 ML IV ONE; +VITA500C24 PO; +VITMTA PO; +ZOLO50TA PO; +diphenhydrAMINE 25MG CAP PO ONE
[2021-02-26 10:35] VITALS: BP 189/108
[2021-02-26] MEDS ORDERED: NS 500 ML IV ONE (11:00)
[2021-02-26 11:45] VITALS: BP 157/90
[2021-02-26 12:20] VITALS: BP 138/84
== END 2021-02-26 12:20 | disposition home or self-care (01) ==
LOC: M INFU 10:31
PROVIDERS: ATTEND Internal Medicine Gastroenterology
DX: K50.90 Crohn's disease, unspecified, without complications (principal); Z88.8 Allergy status to other drugs, medicaments and biological substances
CPT/HCPCS: 96365; J3380

== ENCOUNTER → 2021-03-23 | Outpatient (CLI) | payer BC ==
[~2021-03-23] MED LIST changes: -ACETAMINOPHEN TAB 650MG DOSE (2X325MG) PO ONE; -VEDOLIZUMAB 300 MG in NS 250 ML IV ONE; -diphenhydrAMINE 25MG CAP PO ONE
== END ==
LOC: M LABSMTC 11:54
PROVIDERS: ATTEND Anesthesiology
DX: Z01.818 Encounter for other preprocedural examination (principal); Z11.52 Encounter for screening for COVID-19

== ENCOUNTER 2021-03-26 08:55 | Outpatient (CLI) | payer BC ==
[~2021-03-26] VITALS: Ht 180.3 cm; Wt 127.2 kg
[~2021-03-26 08:55] MED LIST changes: +ACETAMINOPHEN TAB 650MG DOSE (2X325MG) PO ONE; +NS 500 ML IV ONE; +VEDOLIZUMAB 300 MG in NS 250 ML IV ONE
[2021-03-26 09:00] VITALS: BP 136/75
[2021-03-26] MEDS: diphenhydrAMINE 25MG CAP PO ONE ×2 (09:12→09:20)
[2021-03-26] MEDS: ACETAMINOPHEN TAB 650MG DOSE (2X325MG) PO ONE ×2 (09:12→09:20)
[2021-03-26 09:36] VITALS: BP 136/75
[2021-03-26 10:30] VITALS: BP 115/62
== END 2021-03-26 10:30 | disposition home or self-care (01) ==
LOC: M INFU 08:55
PROVIDERS: ATTEND Internal Medicine Gastroenterology
DX: K50.90 Crohn's disease, unspecified, without complications (principal); Z88.8 Allergy status to other drugs, medicaments and biological substances
CPT/HCPCS: 96361; 96365; J3380

== ENCOUNTER 2021-03-28 06:30 | Day surgery (SDC) | payer BC ==
[~2021-03-28] VITALS: Ht 180.3 cm; Wt 142.9 kg
[~2021-03-28 06:30] MED LIST changes: -ACETAMINOPHEN TAB 650MG DOSE (2X325MG) PO ONE; +NS 1,000 ML IV ONE; -NS 500 ML IV ONE; -VEDOLIZUMAB 300 MG in NS 250 ML IV ONE
[2021-03-28] MEDS ORDERED: LIDOCAINE 2% 100MG/5ML SDV (FOR ANES.) ONE (06:46)
[2021-03-28] MEDS ORDERED: propofoL 200 MG/20 ML VIAL ONE ×2 (06:46→07:43)
--- NOTE | 2021-03-28 07:52 | ROOR ---
Patient Name: Prabhjot Raymond Procedure Date: 03/28/2021 7:35 AM Date of : 1970 Age: 51 Room: [facility] Gender: Male Note Status: Finalized Procedure: Total Colonoscopy to Cecum + ileoscopy Indications: Crohn's disease of the small bowel, Follow-up of Crohn's disease of the small bowel, Disease activity assessment of Crohn's disease of the small bowel Providers: Garland Falcon MD Referring MD: Anna Requesting Provider: Medicines: Monitored Anesthesia Care Complications: No immediate complications. Procedure: Pre-Anesthesia Assessment: - The heart rate, respiratory rate, oxygen saturations, blood pressure, adequacy of pulmonary ventilation, and response to care were monitored throughout the procedure. The Colonoscope was introduced through the anus and advanced to the ileocecal valve. The colonoscopy was performed without difficulty. The patient tolerated the procedure well. The quality of the bowel preparation was good. Findings: The perianal and digital rectal examinations were normal. Non-bleeding internal hemorrhoids were found during retroflexion. The hemorrhoids were small and Grade I (internal hemorrhoids that do not prolapse). No other significant abnormalities were identified in a careful examination of the remainder of the colon. The ileocecal valve contained a single (solitary) ulcer. No bleeding was present. The exam was otherwise without abnormality. Impression: - Non-bleeding internal hemorrhoids. - A single (solitary) ulcer at the ileocecal valve. - The examination was otherwise normal. - No specimens collected. - The exam was otherwise normal to the cecum. Recommendation: - Patient has a contact number available for emergencies. The signs and symptoms of potential delayed complications were discussed with the patient. Return to normal activities tomorrow. Written discharge instructions were provided to the patient. - Resume previous diet. - Discharge patient to home. - Continue present medications. - Repeat colonoscopy in 3 - 5 years for surveillance. - Return to referring physician. - The findings and recommendations were discussed with the patient's family. Procedure Code(s): --- Professional --- 29773, Colonoscopy, flexible; diagnostic, including collection of specimen(s) by brushing or washing, when performed (separate procedure) Diagnosis Code(s): --- Professional --- K64.0, First degree hemorrhoids K63.3, Ulcer of intestine K50.00, Crohn's disease of small intestine without complications CPT copyright 2019 [employer]. All rights reserved. The codes documented in this report are preliminary and upon vehicle service agent review may be revised to meet current compliance requirements. Garland Falcon MD Garland Falcon MD 03/28/2021 7:52:01 AM Electronically signed by Garland Falcon MD Number of Addenda: 0 Note Initiated On: 03/28/2021 7:35 AM Estimated Blood Loss: Estimated blood loss: none.
[2021-03-28 08:18] VITALS: BP 122/75
== END 2021-03-28 08:19 | disposition home or self-care (01) ==
LOC: M OPP 06:30
PROVIDERS: ATTEND Internal Medicine Gastroenterology
DX: K63.3 Ulcer of intestine (principal); K64.0 First degree hemorrhoids; K50.00 Crohn's disease of small intestine without complications; K62.5 Hemorrhage of anus and rectum; E03.9 Hypothyroidism, unspecified; F17.210 Nicotine dependence, cigarettes, uncomplicated; Z79.891 Long term (current) use of opiate analgesic; Z79.899 Other long term (current) drug therapy; Z88.8 Allergy status to other drugs, medicaments and biological substances

== ENCOUNTER 2021-04-23 09:39 | Outpatient (CLI) | payer BC ==
[~2021-04-23] VITALS: Ht 185.4 cm; Wt 134.3 kg
[~2021-04-23 09:39] MED LIST changes: +ACETAMINOPHEN TAB 650MG DOSE (2X325MG) PO ONE; -NS 1,000 ML IV ONE; +NS 500 ML IV ONE; +VEDOLIZUMAB 300 MG in NS 250 ML IV ONE; +diphenhydrAMINE 25MG CAP PO ONE
[2021-04-23 10:07] VITALS: BP 145/97
[2021-04-23 11:30] VITALS: BP 158/88
== END 2021-04-23 11:30 | disposition home or self-care (01) ==
LOC: M INFU 09:39
PROVIDERS: ATTEND Internal Medicine Gastroenterology
DX: K50.90 Crohn's disease, unspecified, without complications (principal); Z88.8 Allergy status to other drugs, medicaments and biological substances
CPT/HCPCS: 96361; 96365; J3380

== ENCOUNTER 2021-05-21 09:12 | Outpatient (CLI) | payer BC ==
[~2021-05-21] VITALS: Ht 185.4 cm; Wt 134.0 kg
[2021-05-21 09:20] VITALS: BP 139/80
[2021-05-21 09:30] VITALS: BP 139/80
[2021-05-21 10:21] VITALS: BP 139/80
[2021-05-21 10:55] VITALS: BP 149/85
== END 2021-05-21 11:10 | disposition home or self-care (01) ==
LOC: M INFU 09:12
PROVIDERS: ATTEND Internal Medicine Gastroenterology
DX: K50.90 Crohn's disease, unspecified, without complications (principal); Z88.8 Allergy status to other drugs, medicaments and biological substances
CPT/HCPCS: 96365; J3380

== ENCOUNTER 2021-06-18 10:07 | Outpatient (CLI) | payer BC ==
[~2021-06-18] VITALS: Ht 180.3 cm; Wt 134.2 kg
[2021-06-18 10:30] VITALS: BP 148/86
[2021-06-18 11:40] VITALS: BP 156/74
== END 2021-06-18 11:40 | disposition home or self-care (01) ==
LOC: M INFU 10:07
PROVIDERS: ATTEND Internal Medicine Gastroenterology
DX: K50.90 Crohn's disease, unspecified, without complications (principal); Z88.8 Allergy status to other drugs, medicaments and biological substances

== ENCOUNTER 2021-07-16 08:49 | Outpatient (CLI) | payer BC ==
[~2021-07-16] VITALS: Ht 180.3 cm; Wt 134.3 kg
[~2021-07-16 08:49] MED LIST changes: -ACETAMINOPHEN TAB 650MG DOSE (2X325MG) PO ONE; -NS 500 ML IV ONE; -VEDOLIZUMAB 300 MG in NS 250 ML IV ONE; -diphenhydrAMINE 25MG CAP PO ONE
[2021-07-16] MEDS ORDERED: ACETAMINOPHEN TAB 650MG DOSE (2X325MG) PO ONE (09:00)
[2021-07-16] MEDS ORDERED: diphenhydrAMINE 25MG CAP PO ONE (09:00)
[2021-07-16] MEDS ORDERED: VEDOLIZUMAB 300 MG in NS 250 ML IV ONE (09:00)
[2021-07-16] MEDS ORDERED: NS 500 ML IV SCH (09:00)
[2021-07-16 09:30] VITALS: BP 135/82
[2021-07-16 11:10] VITALS: BP 165/79
== END 2021-07-16 11:10 | disposition home or self-care (01) ==
LOC: M INFU 08:49
PROVIDERS: ATTEND Internal Medicine Gastroenterology
DX: K50.90 Crohn's disease, unspecified, without complications (principal); Z88.8 Allergy status to other drugs, medicaments and biological substances
CPT/HCPCS: 96365; J3380

== ENCOUNTER 2021-08-13 08:39 | Outpatient (CLI) | payer BC ==
[~2021-08-13] VITALS: Ht 180.3 cm; Wt 127.2 kg
[~2021-08-13 08:39] MED LIST changes: +ACETAMINOPHEN TAB 650MG DOSE (2X325MG) PO ONE; +VEDOLIZUMAB 300 MG in NS 250 ML IV ONE; +diphenhydrAMINE 25MG CAP PO ONE
[2021-08-13 08:40] VITALS: BP 168/98
[2021-08-13] MEDS ORDERED: NS 500 ML IV SCH (09:05)
[2021-08-13 10:10] VITALS: BP 126/87
== END 2021-08-13 10:10 | disposition home or self-care (01) ==
LOC: M INFU 08:39
PROVIDERS: ATTEND Internal Medicine Gastroenterology
DX: K50.90 Crohn's disease, unspecified, without complications (principal); Z88.8 Allergy status to other drugs, medicaments and biological substances
CPT/HCPCS: 96365; J3380

== ENCOUNTER 2021-09-10 10:23 | Outpatient (CLI) | payer BC ==
[~2021-09-10] VITALS: Ht 177.8 cm; Wt 134.0 kg
[2021-09-10 10:25] VITALS: BP 145/78
[2021-09-10] MEDS ORDERED: SODIUM CHLORIDE 0.9% 500 ML IV ONE (11:45)
[2021-09-10 13:00] VITALS: BP 102/52
== END 2021-09-10 13:00 | disposition home or self-care (01) ==
LOC: M INFU 10:23
PROVIDERS: ATTEND Internal Medicine Gastroenterology
DX: K50.90 Crohn's disease, unspecified, without complications (principal); Z88.8 Allergy status to other drugs, medicaments and biological substances
CPT/HCPCS: 96365; J3380

== ENCOUNTER 2021-10-08 09:03 | Outpatient (CLI) | payer BC ==
[~2021-10-08] VITALS: Ht 177.8 cm; Wt 134.0 kg
[~2021-10-08 09:03] MED LIST changes: +NS 500 ML IV ONE
[2021-10-08 09:05] VITALS: BP 172/84
[2021-10-08 11:00] VITALS: BP 165/80
== END 2021-10-08 11:05 | disposition home or self-care (01) ==
LOC: M INFU 09:03
PROVIDERS: ATTEND Internal Medicine Gastroenterology
DX: K50.90 Crohn's disease, unspecified, without complications (principal); Z88.8 Allergy status to other drugs, medicaments and biological substances
CPT/HCPCS: 96361; 96365; J3380

== ENCOUNTER 2021-11-05 09:17 | Outpatient (CLI) | payer BC ==
[~2021-11-05] VITALS: Ht 177.8 cm; Wt 134.3 kg
[2021-11-05] MEDS ORDERED: POTASSIUM CHLORIDE INJ 20 MEQ in LR 1,000 ML IV ONE (09:30)
[2021-11-05 11:25] VITALS: BP 152/99
== END 2021-11-05 11:25 | disposition home or self-care (01) ==
LOC: M INFU 09:17
PROVIDERS: ATTEND Internal Medicine Gastroenterology
DX: K50.90 Crohn's disease, unspecified, without complications (principal); Z88.8 Allergy status to other drugs, medicaments and biological substances
CPT/HCPCS: 96361; 96365; J3380

== ENCOUNTER 2021-12-03 08:47 | Outpatient (CLI) | payer BC ==
[~2021-12-03] VITALS: Ht 180.3 cm; Wt 134.3 kg
[~2021-12-03 08:47] MED LIST changes: -ACETAMINOPHEN TAB 650MG DOSE (2X325MG) PO ONE; -NS 500 ML IV ONE; -POTA10TA14 PO; +POTA1TAB24 PO; -VEDOLIZUMAB 300 MG in NS 250 ML IV ONE; -diphenhydrAMINE 25MG CAP PO ONE
[2021-12-03 10:45] VITALS: BP 134/79
== END 2021-12-03 10:55 | disposition home or self-care (01) ==
LOC: M INFU 08:47
PROVIDERS: ATTEND Internal Medicine Gastroenterology
DX: K50.90 Crohn's disease, unspecified, without complications (principal); Z88.8 Allergy status to other drugs, medicaments and biological substances
CPT/HCPCS: 96361; 96365; J3380

== ENCOUNTER 2021-12-31 09:05 | Outpatient (CLI) | payer BC ==
[~2021-12-31] VITALS: Ht 177.8 cm; Wt 132.3 kg
[~2021-12-31 09:05] MED LIST changes: +ACETAMINOPHEN TAB 650MG DOSE (2X325MG) PO ONE; +NS 500 ML IV SCH; +VEDOLIZUMAB 300 MG in NS 250 ML IV ONE; +diphenhydrAMINE 25MG CAP PO ONE
[2021-12-31 09:10] VITALS: BP 142/86
[2021-12-31 11:00] VITALS: BP 143/77
== END 2021-12-31 11:00 | disposition home or self-care (01) ==
LOC: M INFU 09:05
PROVIDERS: ATTEND Internal Medicine Gastroenterology
DX: K50.90 Crohn's disease, unspecified, without complications (principal); Z88.8 Allergy status to other drugs, medicaments and biological substances
CPT/HCPCS: 96365; J3380

== ENCOUNTER 2022-01-28 08:15 | Outpatient (CLI) | payer BC ==
[~2022-01-28] VITALS: Ht 180.3 cm; Wt 134.3 kg
[~2022-01-28 08:15] MED LIST changes: +NS 500 ML IV ONE; -NS 500 ML IV SCH
[2022-01-28 08:19] VITALS: BP 180/86
[2022-01-28 09:56] VITALS: BP 143/74
== END 2022-01-28 10:00 | disposition home or self-care (01) ==
LOC: M INFU 08:15
PROVIDERS: ATTEND Internal Medicine Gastroenterology
DX: K50.90 Crohn's disease, unspecified, without complications (principal); Z88.8 Allergy status to other drugs, medicaments and biological substances
CPT/HCPCS: 96365; J3380